=== PATIENT | male | born 1955 | race Caucasian/White ===

== ENCOUNTER 2020-03-17 10:10 | Emergency (ER) | payer SELFPAY ==
[~2020-03-17] VITALS: Ht 167.6 cm; Wt 80.9 kg
[2020-03-17 10:12] VITALS: BP 145/77
== END 2020-03-17 11:05 | disposition home or self-care (01) ==
LOC: EMS 10:20
DX: Z03.818 Encounter for observation for suspected exposure to other biological agents ruled out (principal); R03.0 Elevated blood-pressure reading, without diagnosis of hypertension
CPT/HCPCS: 87635